=== PATIENT | female | born 1950 | race African-American/Black ===

== ENCOUNTER → 2016-10-17 | Outpatient (CLI) | payer MEDICARE, OTHER ==
[~2016-10-17] MED LIST: ATOR40TA28 PO; CINA30 PO; CLOP75 PO; DSS100 PO; FURO40 PO; ISOS20TA9 PO; MEDRONATE TC99M/UD<30 MCL ISOTOPE 1 EA INJ INJ ONE; METO100XL PO; SEVEC800 PO
== END | disposition home or self-care (01) ==
LOC: RADMN 14:20
PROVIDERS: ATTEND Podiatrist Foot & Ankle Surgery
DX: M86.271 Subacute osteomyelitis, right ankle and foot (principal); M79.671 Pain in right foot; L03.031 Cellulitis of right toe
CPT/HCPCS: 78315; A9503

== ENCOUNTER → 2016-10-29 | Outpatient (CLI) | payer MEDICARE, OTHER ==
[~2016-10-29] VITALS: Ht 157.5 cm; Wt 65.0 kg
[~2016-10-29] MED LIST changes: -MEDRONATE TC99M/UD<30 MCL ISOTOPE 1 EA INJ INJ ONE
[2016-10-29 09:52] VITALS: BP 99/62
== END | disposition home or self-care (01) ==
LOC: SRCNTR 09:46
PROVIDERS: ATTEND Hospitalist
DX: E11.9 Type 2 diabetes mellitus without complications (principal); I12.0 Hypertensive chronic kidney disease with stage 5 chronic kidney disease or end stage renal disease; N18.6 End stage renal disease; Z99.2 Dependence on renal dialysis; M79.674 Pain in right toe(s); H54.0 Blindness, both eyes; M79.671 Pain in right foot; E78.5 Hyperlipidemia, unspecified
CPT/HCPCS: G0463

== ENCOUNTER 2016-11-23 09:05 | Emergency (ER) | payer MEDICARE, OTHER ==
[~2016-11-23] VITALS: Ht 157.5 cm; Wt 63.6 kg
[2016-11-23 09:22] LABS: GLUCOSE,POINT OF CARE 83 MG/DL (70-110)
[2016-11-23] MEDS ORDERED: DIPHENOXYLATE/ATROP 2.5-0.025 MG/5 ML ORAL.SYG LIQUID PO ONE (10:30)
[2016-11-23] MEDS ORDERED: CIPROFLOXACIN HCL 250 MG TABLET PO ONE (10:30)
[2016-11-23 12:15] VITALS: BP 175/82
== END 2016-11-23 12:49 | disposition home or self-care (01) ==
LOC: EMS 09:08
DX: R19.7 Diarrhea, unspecified (principal); I10 Essential (primary) hypertension; E78.00 Pure hypercholesterolemia, unspecified; E11.29 Type 2 diabetes mellitus with other diabetic kidney complication; N28.9 Disorder of kidney and ureter, unspecified; Z88.0 Allergy status to penicillin; Z88.1 Allergy status to other antibiotic agents
CPT/HCPCS: 82962; 99283

== ENCOUNTER → 2017-01-21 | Outpatient (CLI) | payer MEDICARE, OTHER ==
[~2017-01-21] VITALS: Ht 157.5 cm; Wt 66.0 kg
[2017-01-21 10:14] VITALS: BP 142/60
== END | disposition home or self-care (01) ==
LOC: SRCNTR 10:06
PROVIDERS: ATTEND Hospitalist
DX: E11.65 Type 2 diabetes mellitus with hyperglycemia (principal); I12.0 Hypertensive chronic kidney disease with stage 5 chronic kidney disease or end stage renal disease; E11.22 Type 2 diabetes mellitus with diabetic chronic kidney disease; N18.6 End stage renal disease; E78.5 Hyperlipidemia, unspecified; H54.0 Blindness, both eyes; I73.9 Peripheral vascular disease, unspecified; Z89.512 Acquired absence of left leg below knee; Z99.2 Dependence on renal dialysis; Z87.19 Personal history of other diseases of the digestive system
CPT/HCPCS: G0463

== ENCOUNTER → 2017-06-24 | Outpatient (CLI) | payer MEDICARE, OTHER ==
[~2017-06-24] VITALS: Ht 157.5 cm; Wt 69.1 kg
[2017-06-24 12:04] VITALS: BP 152/72
== END | disposition home or self-care (01) ==
LOC: SRCNTR 11:49
PROVIDERS: ATTEND Hospitalist
DX: I10 Essential (primary) hypertension (principal); E11.65 Type 2 diabetes mellitus with hyperglycemia; E78.5 Hyperlipidemia, unspecified
CPT/HCPCS: G0463

== ENCOUNTER 2017-07-30 21:35 | Inpatient (IN) | payer MEDICARE, OTHER ==
[~2017-07-30] VITALS: Ht 157.5 cm; Wt 92.3 kg
[2017-07-30 21:58] LABS: GLUCOSE,POINT OF CARE 163 MG/DL (70-110)
[2017-07-30 22:44] LABS: BASOPHILS # (AUTO) 0.04 K/uL (0.00-0.20); BASOPHILS % (AUTO) 0.4 % (0.0-2.0); EOSINOPHILS # (AUTO) 0.02 K/uL (0.00-0.70); EOSINOPHILS % (AUTO) 0.17 % (1.0-6.0); HEMATOCRIT 36.4 % (36-46); HEMOGLOBIN 11.5 g/dL (12.0-16.0); LYMPHOCYTES # (AUTO) 0.7 K/uL (1.0-4.8); LYMPHOCYTES % (AUTO) 7.2 % (22.0-44.0); MEAN CORPUSCULAR HGB CONC 31.7 G/dL (31.0-37.0); MEAN CORPUSCULAR VOLUME 92 fL (80-100); MONOCYTES # (AUTO) 0.6 K/uL (0.1-1.0); MONOCYTES % (AUTO) 5.7 % (2.0-9.0); NEUTROPHILS # (AUTO) 8.9 K/uL (1.8-7.7); NEUTROPHILS % (AUTO) 86.5 % (40.0-70.0); PLATELET COUNT (AUTO) 280 K/uL (150-450); RED BLOOD CELL COUNT(AUTO) 3.97 MIL/uL (4.00-5.20); RED CELL DISTRIBUTION WIDTH 16.4 % (11.5-14.5); WHITE BLOOD COUNT (AUTO) 10.3 K/uL (4.5-11.0)
[2017-07-30] MEDS ORDERED: ONDANSETRON HCL 4 MG/2 ML VIAL IVP ONE (22:45)
[2017-07-30] MEDS ORDERED: HYDROmorphone 2 MG/ML SYRINGE IVP ONE (22:45)
[2017-07-30 23:15] LABS: CALCIUM, TOTAL 8.9 mg/dL (8.8-10.5); CREATININE 4.89 mg/dL (0.60-1.30); POTASSIUM 3.9 mmol/L (3.5-5.1)
[2017-07-30 23:21] LABS: ALBUMIN 3.5 g/dL (3.4-5.0); BILIRUBIN,TOTAL 1.5 mg/dL (0.1-1.0); TOTAL PROTEIN, SERUM 8.3 g/dL (6.4-8.2)
[2017-07-30] MEDS ORDERED: HYDROmorphone 2 MG/ML SYRINGE IM ONE (23:30)
[2017-07-30] MEDS ORDERED: ONDANSETRON HCL 4 MG/2 ML VIAL IM ONE (23:30)
[2017-07-31] MEDS ORDERED: BARIUM SULFATE 0.1% SUSPENSION 450 ML BOTTLE PO ONE (00:15)
[2017-07-31] MEDS ORDERED: MORPHINE SULFATE 4 MG/ML SYRINGE IVP PRN (03:00)
[2017-07-31] MEDS ORDERED: ONDANSETRON HCL 4 MG/2 ML VIAL IVP PRN ×3 (03:00→14:15)
[2017-07-31] MEDS ORDERED: ACETAMINOPHEN 325 MG TABLET PO PRN ×2 (03:00→14:15)
[2017-07-31] MEDS ORDERED: 0.9% SODIUM CHLORIDE 10 ML SYRINGE IVP PRN (03:00)
[2017-07-31] MEDS ORDERED: ONDANSETRON HCL 4 MG/2 ML VIAL IVP ONE (03:15)
[2017-07-31 03:30] VITALS: BP 147/70
[2017-07-31 08:00] VITALS: BP 137/68
[2017-07-31] MEDS ORDERED: DEXTROSE 50%-WATER 25 GM/50 ML SYRINGE IVP PRN ×2 (08:00→14:15)
[2017-07-31] MEDS ORDERED: INSULIN ASPART 100 UNITS/ML SQ PRN (08:00)
[2017-07-31] MEDS ORDERED: MIDAZOLAM HCL 2 MG/2 ML VIAL ONE (08:35)
[2017-07-31] MEDS ORDERED: FentaNYL CITRATE-PF 100 MCG/2 ML VIAL ONE (08:35)
[2017-07-31] MEDS ORDERED: LIDOCAINE HCL/PF 1% 30 ML VIAL ONE (08:35)
[2017-07-31] MEDS ORDERED: SODIUM CHLORIDE 0.9% 100 ML ONE (09:34)
[2017-07-31] MEDS ORDERED: IOVERSOL 350 MG/ML 100 ML VIAL ONE (09:34)
[2017-07-31] MEDS ORDERED: MIDAZOLAM HCL 2 MG/2 ML VIAL IVP ONE (10:08)
[2017-07-31] MEDS ORDERED: FentaNYL CITRATE-PF 100 MCG/2 ML VIAL IVP ONE (10:08)
[2017-07-31] MEDS ORDERED: BISACODYL 10 MG RECTAL RECTAL SUPPOSITORY PR PRN (14:15)
[2017-07-31] MEDS ORDERED: ALBUTEROL SULFATE 2.5 MG/0.5 ML NEB SOLUTION NEB PRN (14:15)
[2017-07-31] MEDS ORDERED: MORPHINE SULFATE 2 MG/ML SYRINGE IVP PRN (14:15)
[2017-07-31] MEDS ORDERED: OxyCODONE HCL/ACETAMINOPHEN 5-325 MG TABLET PO PRN (14:15)
[2017-07-31 15:32] LABS: CALCIUM, TOTAL 8.3 mg/dL (8.8-10.5); CREATININE 6.03 mg/dL (0.60-1.30); POTASSIUM 4.1 mmol/L (3.5-5.1)
[2017-07-31 15:36] LABS: MAGNESIUM 2.4 mg/dL (1.80-2.40); PHOSPHORUS 3.3 mg/dL (2.5-4.9)
[2017-07-31 16:00] VITALS: BP 138/72
[2017-07-31] MEDS: INSULIN ASPART 100 UNITS/ML SQ PRN ×2 (17:45→21:27)
[2017-07-31 19:42] LABS: GLUCOSE,POINT OF CARE 174 MG/DL (70-110)
[2017-07-31 19:42] LABS: GLUCOSE,POINT OF CARE 99 MG/DL (70-110)
[2017-07-31 20:18] VITALS: BP 104/51
[2017-07-31] MEDS: HEPARIN SODIUM,PORCINE 5,000 UNITS/ML VIAL SQ SCH (20:26)
[2017-07-31] MEDS: DOCUSATE SODIUM 100 MG CAPSULE PO SCH (20:26)
[2017-08-01 00:04] VITALS: BP 123/60
[2017-08-01 00:27] LABS: GLUCOSE COMMENT 1 Received Meds; GLUCOSE,POINT OF CARE 205 MG/DL (70-110)
[2017-08-01 05:04] VITALS: BP 131/62
[2017-08-01 07:47] VITALS: BP 158/71
[2017-08-01] MEDS ORDERED: GADOBUTROL 1 MMOL/ML 10 ML VIAL IVP ONE (08:14)
[2017-08-01 08:33] LABS: CARCINOEMBRYONIC AG 307.9 ng/mL (0.0-4.7)
[2017-08-01] MEDS: HEPARIN SODIUM,PORCINE 5,000 UNITS/ML VIAL SQ SCH ×2 (09:00→19:59)
[2017-08-01] MEDS: DOCUSATE SODIUM 100 MG CAPSULE PO SCH ×2 (09:00→20:00)
[2017-08-01] MEDS ORDERED: SODIUM CHLORIDE 0.9% 2,000 ML IV ONE (12:46)
[2017-08-01 15:23] LABS: ALBUMIN 2.3 g/dL (3.4-5.0); BILIRUBIN,TOTAL 0.6 mg/dL (0.1-1.0); CALCIUM, TOTAL 8.4 mg/dL (8.8-10.5); CREATININE 6.62 mg/dL (0.60-1.30); POTASSIUM 3.9 mmol/L (3.5-5.1)
[2017-08-01] MEDS: VITAMIN B COMP/VIT C/FOLIC ACID CAPSULE PO SCH (17:30)
[2017-08-01] MEDS: PANTOPRAZOLE SODIUM 40 MG DR TABLET PO SCH (17:30)
[2017-08-01 17:37] LABS: GLUCOSE,POINT OF CARE 81 MG/DL (70-110)
[2017-08-01 19:41] VITALS: BP 99/49
[2017-08-01 23:38] VITALS: BP 97/45
[2017-08-02 04:03] LABS: GLUCOSE,POINT OF CARE 103 MG/DL (70-110)
[2017-08-02 04:07] VITALS: BP 139/61
[2017-08-02 07:42] LABS: GLUCOSE,POINT OF CARE 103 MG/DL (70-110)
[2017-08-02 07:43] LABS: GLUCOSE,POINT OF CARE 81 MG/DL (70-110)
[2017-08-02 07:46] VITALS: BP 153/64
[2017-08-02] MEDS: DOCUSATE SODIUM 100 MG CAPSULE PO SCH ×2 (09:00→20:13)
[2017-08-02] MEDS: PANTOPRAZOLE SODIUM 40 MG DR TABLET PO SCH (09:42)
[2017-08-02] MEDS: VITAMIN B COMP/VIT C/FOLIC ACID CAPSULE PO SCH (09:42)
[2017-08-02] MEDS: HEPARIN SODIUM,PORCINE 5,000 UNITS/ML VIAL SQ SCH ×2 (09:49→20:13)
[2017-08-02 12:53] VITALS: BP 148/79
[2017-08-02 13:37] LABS: GLUCOSE,POINT OF CARE 104 MG/DL (70-110)
[2017-08-02 15:47] VITALS: BP 142/63
[2017-08-02 19:41] VITALS: BP 138/64
[2017-08-02] MEDS: INSULIN ASPART 100 UNITS/ML SQ PRN (20:18)
[2017-08-03 00:10] VITALS: BP 138/71
[2017-08-03 04:36] VITALS: BP 149/76
[2017-08-03 06:07] LABS: GLUCOSE,POINT OF CARE 219 MG/DL (70-110)
[2017-08-03 07:52] VITALS: BP 179/83
[2017-08-03] MEDS: VITAMIN B COMP/VIT C/FOLIC ACID CAPSULE PO SCH (08:57)
[2017-08-03] MEDS: DOCUSATE SODIUM 100 MG CAPSULE PO SCH ×2 (08:57→20:42)
[2017-08-03] MEDS: PANTOPRAZOLE SODIUM 40 MG DR TABLET PO SCH (08:57)
[2017-08-03] MEDS ORDERED: LIDOCAINE HCL/PF 1% 2 ML VIAL ID PRN (09:00)
[2017-08-03] MEDS: HEPARIN SODIUM,PORCINE 5,000 UNITS/ML VIAL SQ SCH ×2 (09:00→20:41)
[2017-08-03 11:42] LABS: GLUCOSE,POINT OF CARE 102 MG/DL (70-110)
[2017-08-03 15:24] VITALS: BP 112/58
[2017-08-03 20:04] VITALS: BP 110/55
[2017-08-03 23:25] VITALS: BP 108/51
[2017-08-04 05:32] VITALS: BP 127/63
[2017-08-04 08:01] VITALS: BP 148/74
[2017-08-04] MEDS: PANTOPRAZOLE SODIUM 40 MG DR TABLET PO SCH (08:24)
[2017-08-04] MEDS: VITAMIN B COMP/VIT C/FOLIC ACID CAPSULE PO SCH (08:24)
[2017-08-04] MEDS: HEPARIN SODIUM,PORCINE 5,000 UNITS/ML VIAL SQ SCH (08:24)
[2017-08-04] MEDS: DOCUSATE SODIUM 100 MG CAPSULE PO SCH (08:29)
[2017-08-04 11:25] VITALS: BP 140/90
== END 2017-08-04 15:45 | disposition home or self-care (01) | DRG 435 ==
LOC: EMS 21:36 → 6N 07-31 03:13
PROVIDERS: ADMIT Internal Medicine; ATTEND Internal Medicine
PROC: 0FB23ZX Excision of Left Lobe Liver, Percutaneous Approach, Diagnostic (ICD-10-PCS; principal; 2017-07-31)
PROC: 5A1D70Z Performance of Urinary Filtration, Intermittent, Less than 6 Hours Per Day (ICD-10-PCS; 2017-08-01)
PROC: 5A1D70Z Performance of Urinary Filtration, Intermittent, Less than 6 Hours Per Day (ICD-10-PCS; 2017-08-03)
DX: C22.1 Intrahepatic bile duct carcinoma (principal); N18.6 End stage renal disease; E11.22 Type 2 diabetes mellitus with diabetic chronic kidney disease; R16.0 Hepatomegaly, not elsewhere classified; N28.1 Cyst of kidney, acquired; E11.51 Type 2 diabetes mellitus with diabetic peripheral angiopathy without gangrene; E11.319 Type 2 diabetes mellitus with unspecified diabetic retinopathy without macular edema; I12.0 Hypertensive chronic kidney disease with stage 5 chronic kidney disease or end stage renal disease; D64.9 Anemia, unspecified; E78.00 Pure hypercholesterolemia, unspecified; H54.8 Legal blindness, as defined in USA; I25.10 Atherosclerotic heart disease of native coronary artery without angina pectoris; K80.20 Calculus of gallbladder without cholecystitis without obstruction; Z79.02 Long term (current) use of antithrombotics/antiplatelets; Z87.11 Personal history of peptic ulcer disease; Z89.512 Acquired absence of left leg below knee; Z90.710 Acquired absence of both cervix and uterus; Z99.2 Dependence on renal dialysis; Z88.8 Allergy status to other drugs, medicaments and biological substances
CPT/HCPCS: 47000; 74176; 74178; 74181; 76700; 82105; 82378; 82962; 83605; 83735; 84100; 86140; 86301; 87081; 88307; 88313; 88341; 88342; 90935; 93005; 96372; 96374; 99285; A9585; J1170; J1644; J2250; J2405; J3010; J3490; J7030; J7050

== ENCOUNTER 2017-10-02 21:13 | Emergency (ER) | payer MEDICARE, OTHER ==
[~2017-10-02] VITALS: Ht 157.5 cm; Wt 60.0 kg
[2017-10-02] MEDS ORDERED: METO50 PO (21:43)
[2017-10-02] MEDS ORDERED: PANT40TA25 PO (21:43)
[2017-10-02] MEDS ORDERED: IBUPROFEN 600 MG TABLET PO ONE (22:45)
[2017-10-02 22:51] VITALS: BP 151/88
== END 2017-10-02 22:54 | disposition home or self-care (01) ==
LOC: EMS 21:15
DX: S20.219A Contusion of unspecified front wall of thorax, initial encounter (principal); G89.29 Other chronic pain; M54.9 Dorsalgia, unspecified; I12.0 Hypertensive chronic kidney disease with stage 5 chronic kidney disease or end stage renal disease; N18.6 End stage renal disease; E11.22 Type 2 diabetes mellitus with diabetic chronic kidney disease; Z88.0 Allergy status to penicillin; Z88.1 Allergy status to other antibiotic agents; Z99.2 Dependence on renal dialysis; X58.XXXA Exposure to other specified factors, initial encounter; Y93.89 Activity, other specified; Y92.89 Other specified places as the place of occurrence of the external cause; Y99.8 Other external cause status
CPT/HCPCS: 71111; 99284

== ENCOUNTER 2017-10-12 08:24 | Inpatient (IN) | payer MEDICARE, OTHER ==
[~2017-10-12] VITALS: Ht 170.2 cm; Wt 76.7 kg
[~2017-10-12 08:24] MED LIST changes: +ACET-784 PO; +BISA10S PR; +CLOP75TA32 PO; +EPOE4000 SQ; +HEPA500018 SQ; +INSNOV SQ; +LEVO500 PO; -METO100XL PO; +METO50 PO; +METR500 PO; +MOM30 PO; +MORP15TA9 PO; +ONDA4 PO; +PANT40TA25 PO
[2017-10-12 12:34] LABS: BASOPHILS % (AUTO) 0.3 % (0.0-2.0); EOSINOPHILS % (AUTO) 0.5 % (1.0-6.0); HEMATOCRIT 26.6 % (36-46); HEMOGLOBIN 8.8 g/dL (12.0-16.0); LYMPHOCYTES # (AUTO) 1.1 K/uL (1.0-4.8); LYMPHOCYTES % (AUTO) 8.4 % (22.0-44.0); MEAN CORPUSCULAR HEMOGLOBIN 28.1 pg (26.0-34.0); MEAN CORPUSCULAR HGB CONC 33.1 G/dL (31.0-37.0); MEAN CORPUSCULAR VOLUME 85 fL (80-100); MONOCYTES # (AUTO) 1.5 K/uL (0.1-1.0); MONOCYTES % (AUTO) 10.8 % (2.0-9.0); NEUTROPHILS # (AUTO) 10.9 K/uL (1.8-7.7); PLATELET COUNT (AUTO) 164 K/uL (150-450); RED BLOOD CELL COUNT(AUTO) 3.13 MIL/uL (4.00-5.20); RED CELL DISTRIBUTION WIDTH 18.7 % (11.5-14.5)
[2017-10-12 12:48] LABS: CALCIUM, TOTAL 8.7 mg/dL (8.8-10.5); CREATININE 4.31 mg/dL (0.60-1.30); POTASSIUM 4.1 mmol/L (3.5-5.1)
[2017-10-12 12:53] LABS: ALBUMIN 1.6 g/dL (3.4-5.0); BILIRUBIN,TOTAL 1.3 mg/dL (0.1-1.0); TOTAL PROTEIN, SERUM 5.7 g/dL (6.4-8.2)
[2017-10-12] MEDS ORDERED: SODIUM CHLORIDE 0.9% 1,000 ML IV ONE (13:15)
[2017-10-12] MEDS ORDERED: SODIUM CHLORIDE 0.9% 250 ML IV ONE (13:15)
[2017-10-12] MEDS ORDERED: LEVOFLOXACIN 500 MG/D5% WATER 100 ML IV ONE (13:15)
[2017-10-12] MEDS: NOREPINEPHRINE 4 MG/D5%-WATER 250 ML IV PRN (13:44)
[2017-10-12] MEDS ORDERED: 0.9% SODIUM CHLORIDE 10 ML SYRINGE IVP PRN (13:45)
[2017-10-12] MEDS ORDERED: ACETAMINOPHEN 325 MG TABLET PO PRN (13:45)
[2017-10-12] MEDS ORDERED: POVIDONE-IODINE 10% 120 ML SOLUTION TP ONE ×2 (14:00→14:15)
[2017-10-12 16:00] VITALS: BP 112/62
[2017-10-12] MEDS ORDERED: ALBUMIN HUMAN 25%-25GM/100ML 100 ML IV ONE (19:00)
[2017-10-12] MEDS ORDERED: SODIUM CHLORIDE 0.9% 500 ML IV ONE (19:00)
[2017-10-12 20:00] VITALS: BP 96/48
[2017-10-13] VITALS (7 sets, daily range): BP systolic 97–125; BP diastolic 42–87
[2017-10-13] MEDS: NOREPINEPHRINE 4 MG/D5%-WATER 250 ML IV PRN ×3 (00:36→22:13)
[2017-10-13] MEDS ORDERED: *CLINICAL-AZTREONAM DOSING CLINICAL ONE (12:15)
[2017-10-13] MEDS ORDERED: ALBUMIN HUMAN 5%-12.5GM/250ML 250 ML IV ONE ×2 (12:30→13:30)
[2017-10-13] MEDS ORDERED: *CLINICAL-LEVOFLOXACIN IVPB DOSING CLINICAL ONE (12:30)
[2017-10-13] MEDS: DEXTROSE 5%-0.9% SODIUM CHL 1,000 ML IV SCH (12:45)
[2017-10-13] MEDS ORDERED: DEXTROSE 50%-WATER 25 GM/50 ML SYRINGE IVP PRN (12:45)
[2017-10-13] MEDS ORDERED: LEVOFLOXACIN 500 MG/D5% WATER 100 ML IV ONE (13:00)
[2017-10-13] MEDS ORDERED: AZTREONAM 2 GM in DEXTROSE 5%-WATER 50 ML IV ONE (13:00)
[2017-10-13] MEDS ORDERED: SODIUM CHLORIDE 0.9% 250 ML IV ONE (13:58)
[2017-10-13] MEDS ORDERED: AZTREONAM 1 GM in DEXTROSE 5%-WATER 50 ML IV SCH (14:00)
[2017-10-13] MEDS: LEVOFLOXACIN 500 MG/D5% WATER 100 ML IV SCH (15:12)
[2017-10-13] MEDS: INSULIN ASPART 100 UNITS/ML SQ PRN ×2 (17:46→20:59)
[2017-10-13 18:08] LABS: GLUCOSE,POINT OF CARE 215 MG/DL (70-110)
[2017-10-13] MEDS: AZTREONAM 0.5 GM in DEXTROSE 5%-WATER 50 ML IV SCH (20:57)
[2017-10-14] VITALS (7 sets, daily range): BP systolic 86–116; BP diastolic 46–65
[2017-10-14 05:05] LABS: HEMATOCRIT 26.8 % (36-46); HEMOGLOBIN 8.8 g/dL (12.0-16.0); MEAN CORPUSCULAR HEMOGLOBIN 28.1 pg (26.0-34.0); MEAN CORPUSCULAR HGB CONC 32.7 G/dL (31.0-37.0); MEAN CORPUSCULAR VOLUME 86 fL (80-100); PLATELET COUNT (AUTO) 160 K/uL (150-450); RED BLOOD CELL COUNT(AUTO) 3.11 MIL/uL (4.00-5.20); RED CELL DISTRIBUTION WIDTH 19.6 % (11.5-14.5)
[2017-10-14] MEDS: DEXTROSE 5%-0.9% SODIUM CHL 1,000 ML IV SCH (05:10)
[2017-10-14] MEDS: AZTREONAM 0.5 GM in DEXTROSE 5%-WATER 50 ML IV SCH ×3 (05:10→20:04)
[2017-10-14] MEDS: INSULIN ASPART 100 UNITS/ML SQ PRN ×5 (05:11→23:27)
[2017-10-14 05:14] LABS: % IRON SATURATION 108.8 % (22-44)
[2017-10-14 05:20] LABS: CALCIUM, TOTAL 8.4 mg/dL (8.8-10.5); CREATININE 5.01 mg/dL (0.60-1.30); MAGNESIUM 1.8 mg/dL (1.80-2.40); PHOSPHORUS 2.8 mg/dL (2.5-4.9); POTASSIUM 3.8 mmol/L (3.5-5.1)
[2017-10-14 07:22] LABS: GLUCOSE,POINT OF CARE 225 MG/DL (70-110)
[2017-10-14 07:23] LABS: GLUCOSE,POINT OF CARE 214 MG/DL (70-110)
[2017-10-14] MEDS: EPOETIN ALFA 10,000 UNITS/ML VIAL SQ SCH (08:51)
[2017-10-14 09:44] LABS: BAND NEUTROPHILS % (MANUAL) 1 % (1-5); EOSINOPHILS % (MANUAL) 1 % (1-6); LYMPHOCYTES % (MANUAL) 15 % (22-44); MONOCYTES % (MANUAL) 5 % (2-9); SEGMENTED NEUTROPHILS % 78 % (40-70)
[2017-10-14] MEDS ORDERED: EPOE10IM SQ (11:26)
[2017-10-14] MEDS: VITAMIN B COMP/VIT C/FOLIC ACID CAPSULE PO SCH (11:30)
[2017-10-14] MEDS: SODIUM CHLORIDE 0.9% 1,000 ML IV SCH (13:00)
[2017-10-14] MEDS: NOREPINEPHRINE 4 MG/D5%-WATER 250 ML IV PRN ×2 (13:59→19:30)
[2017-10-14] MEDS ORDERED: SODIUM CHLORIDE 0.9% 0 ML IV ONE (16:22)
[2017-10-14] MEDS: HEPARIN SODIUM,PORCINE 5,000 UNITS/ML VIAL SQ SCH ×2 (16:35→23:26)
[2017-10-14] MEDS: DOCUSATE SODIUM 100 MG CAPSULE PO SCH (20:04)
[2017-10-14 22:52] LABS: GLUCOSE,POINT OF CARE 227 MG/DL (70-110)
[2017-10-14 22:52] LABS: GLUCOSE,POINT OF CARE 237 MG/DL (70-110)
[2017-10-14 22:58] LABS: GLUCOSE,POINT OF CARE 203 MG/DL (70-110)
[2017-10-14 22:58] LABS: GLUCOSE,POINT OF CARE 195 MG/DL (70-110)
[2017-10-15] VITALS: BP 101/50
[2017-10-15] MEDS: NOREPINEPHRINE 4 MG/D5%-WATER 250 ML IV PRN ×3 (02:25→21:12)
[2017-10-15 04:00] VITALS: BP 88/56
[2017-10-15] MEDS: AZTREONAM 0.5 GM in DEXTROSE 5%-WATER 50 ML IV SCH ×3 (05:17→20:24)
[2017-10-15 05:20] LABS: ALBUMIN 1.7 g/dL (3.4-5.0); BILIRUBIN,TOTAL 1.7 mg/dL (0.1-1.0); CREATININE 5.54 mg/dL (0.60-1.30); POTASSIUM 3.6 mmol/L (3.5-5.1); TOTAL PROTEIN, SERUM 5.4 g/dL (6.4-8.2)
[2017-10-15] MEDS: INSULIN ASPART 100 UNITS/ML SQ PRN ×3 (05:29→17:10)
[2017-10-15 08:00] VITALS: BP 120/59
[2017-10-15] MEDS: HEPARIN SODIUM,PORCINE 5,000 UNITS/ML VIAL SQ SCH ×2 (08:00→17:09)
[2017-10-15 08:48] LABS: GLUCOSE,POINT OF CARE 186 MG/DL (70-110)
[2017-10-15 08:48] LABS: GLUCOSE,POINT OF CARE 187 MG/DL (70-110)
[2017-10-15] MEDS: DOCUSATE SODIUM 100 MG CAPSULE PO SCH ×2 (09:00→20:24)
[2017-10-15] MEDS: VITAMIN B COMP/VIT C/FOLIC ACID CAPSULE PO SCH (09:00)
[2017-10-15] MEDS: PANTOPRAZOLE SODIUM 40 MG DR TABLET PO SCH (09:00)
[2017-10-15] MEDS: ONDANSETRON HCL 4 MG/2 ML VIAL IVP PRN ×2 (11:07→19:08)
[2017-10-15 12:00] VITALS: BP 98/48
[2017-10-15] MEDS ORDERED: LEVOFLOXACIN 250 MG/D5% WATER 50 ML IV SCH (12:00)
[2017-10-15] MEDS: SODIUM CHLORIDE 0.9% 1,000 ML IV SCH (12:26)
[2017-10-15 15:38] LABS: GLUCOSE,POINT OF CARE 184 MG/DL (70-110)
[2017-10-15] MEDS ORDERED: SODIUM CHLORIDE 0.9% 250 ML IV ONE (15:46)
[2017-10-15] MEDS: LEVOFLOXACIN 500 MG/D5% WATER 100 ML IV SCH (15:55)
[2017-10-15 16:00] VITALS: BP 97/52
[2017-10-15 20:00] VITALS: BP 110/55
[2017-10-15 22:08] LABS: GLUCOSE,POINT OF CARE 200 MG/DL (70-110)
[2017-10-16] VITALS: BP 75/49
[2017-10-16] MEDS: HEPARIN SODIUM,PORCINE 5,000 UNITS/ML VIAL SQ SCH ×3 (00:30→15:35)
[2017-10-16] MEDS: ONDANSETRON HCL 4 MG/2 ML VIAL IVP PRN ×2 (00:30→15:35)
[2017-10-16 04:00] VITALS: BP 120/52
[2017-10-16] MEDS: AZTREONAM 0.5 GM in DEXTROSE 5%-WATER 50 ML IV SCH ×3 (05:53→21:27)
[2017-10-16] MEDS: INSULIN ASPART 100 UNITS/ML SQ PRN (06:37)
[2017-10-16 08:00] VITALS: BP 114/61
[2017-10-16] MEDS: EPOETIN ALFA 10,000 UNITS/ML VIAL SQ SCH (08:22)
[2017-10-16] MEDS: PANTOPRAZOLE SODIUM 40 MG DR TABLET PO SCH (08:22)
[2017-10-16] MEDS: VITAMIN B COMP/VIT C/FOLIC ACID CAPSULE PO SCH (08:22)
[2017-10-16] MEDS: DOCUSATE SODIUM 100 MG CAPSULE PO SCH ×2 (08:22→21:29)
[2017-10-16 09:27] LABS: GLUCOSE,POINT OF CARE 163 MG/DL (70-110)
[2017-10-16 09:27] LABS: GLUCOSE,POINT OF CARE 180 MG/DL (70-110)
[2017-10-16 12:00] VITALS: BP 94/49
[2017-10-16 16:00] VITALS: BP 94/60
[2017-10-16 17:32] LABS: GLUCOSE,POINT OF CARE 127 MG/DL (70-110)
[2017-10-16 17:33] LABS: GLUCOSE,POINT OF CARE 122 MG/DL (70-110)
[2017-10-16] MEDS: NOREPINEPHRINE 4 MG/D5%-WATER 250 ML IV PRN (18:43)
[2017-10-16 20:00] VITALS: BP 92/55
[2017-10-16] MEDS: MIDODRINE HCL 5 MG TABLET PO SCH (21:27)
[2017-10-17] VITALS (8 sets, daily range): BP systolic 85–123; BP diastolic 37–65
[2017-10-17] MEDS: HEPARIN SODIUM,PORCINE 5,000 UNITS/ML VIAL SQ SCH ×4 (00:29→23:54)
[2017-10-17] MEDS: ONDANSETRON HCL 4 MG/2 ML VIAL IVP PRN (00:34)
[2017-10-17] MEDS: AZTREONAM 0.5 GM in DEXTROSE 5%-WATER 50 ML IV SCH ×3 (05:27→20:43)
[2017-10-17] MEDS ORDERED: SODIUM CHLORIDE 0.9% 250 ML IV ONE (05:29)
[2017-10-17 06:00] LABS: HEMATOCRIT 24.5 % (36-46); HEMOGLOBIN 8.1 g/dL (12.0-16.0); MEAN CORPUSCULAR HEMOGLOBIN 28.2 pg (26.0-34.0); MEAN CORPUSCULAR HGB CONC 33.2 G/dL (31.0-37.0); MEAN CORPUSCULAR VOLUME 85 fL (80-100); PLATELET COUNT (AUTO) 151 K/uL (150-450); RED BLOOD CELL COUNT(AUTO) 2.89 MIL/uL (4.00-5.20); RED CELL DISTRIBUTION WIDTH 19.6 % (11.5-14.5)
[2017-10-17 06:11] LABS: ALBUMIN 1.5 g/dL (3.4-5.0); BILIRUBIN,TOTAL 2.2 mg/dL (0.1-1.0); CALCIUM, TOTAL 8.2 mg/dL (8.8-10.5); CREATININE 6.2 mg/dL (0.60-1.30); POTASSIUM 4.3 mmol/L (3.5-5.1); TOTAL PROTEIN, SERUM 5.2 g/dL (6.4-8.2)
[2017-10-17 06:39] LABS: GLUCOSE,POINT OF CARE 137 MG/DL (70-110)
[2017-10-17] MEDS ORDERED: ALBUMIN HUMAN 25%-12.5GM/50ML IV BOTTLE IV ONE (07:00)
[2017-10-17] MEDS ORDERED: HEPARIN SODIUM,PORCINE 1,000 UNITS/ML VIAL IVP ONE (07:00)
[2017-10-17 07:29] LABS: BAND NEUTROPHILS % (MANUAL) 1 % (1-5); LYMPHOCYTES % (MANUAL) 8 % (22-44); MONOCYTES % (MANUAL) 3 % (2-9); SEGMENTED NEUTROPHILS % 88 % (40-70)
[2017-10-17] MEDS: PANTOPRAZOLE SODIUM 40 MG DR TABLET PO SCH (08:18)
[2017-10-17] MEDS: DOCUSATE SODIUM 100 MG CAPSULE PO SCH ×2 (08:18→20:44)
[2017-10-17] MEDS: VITAMIN B COMP/VIT C/FOLIC ACID CAPSULE PO SCH (08:19)
[2017-10-17] MEDS: MIDODRINE HCL 5 MG TABLET PO SCH ×3 (08:45→20:43)
[2017-10-17] MEDS: NOREPINEPHRINE 4 MG/D5%-WATER 250 ML IV PRN ×2 (09:03→16:21)
[2017-10-17 12:25] LABS: ABG A-A DIFF O2 80.7 mmHg (10-20.0); ABG BASE EXCESS -0.5 mmol/L (-2.0-3.0); ABG CARBOXYHEMOGLOBIN 1.3 % (0.0-1.5); ABG HCO3 24.1 mmol/L (22.0-26.0); ABG METHEMOGLOBIN 0.1 % (0.0-1.5); ABG OXYGEN CONTENT 11.3 mL/dL (15.0-23.0); ABG OXYGEN SATURATION 95.7 % (95.0-98.0); ABG OXYHEMOGLOBIN 94.4 % (94.0-100.0); ABG PCO2 36 mmHg (35-45); ABG PH 7.432 (7.35-7.450); ABG TOTAL HEMOGLOBIN 8.4 G/dL (12.0-18.0); O2 DEVICE,BLOOD GAS CANNULA (ROOM AIR); PO2, ARTERIAL BG 76.4 mmHg (79.0-87.0); SITE, BLOOD GAS RT RADIAL; SOURCE, BLOOD GAS ARTERIAL; TEMPERATURE, FAHRENHEIT, BG 97.6 FAHREN (96.0-98.6)
[2017-10-17] MEDS: LEVOFLOXACIN 500 MG/D5% WATER 100 ML IV SCH (15:03)
[2017-10-17 15:22] LABS: GLUCOSE,POINT OF CARE 137 MG/DL (70-110)
[2017-10-17] MEDS ORDERED: SODIUM CHLORIDE 0.9% 500 ML IV ONE ×2 (17:17→17:37)
[2017-10-17] MEDS: DOXYCYCLINE 100 MG in DEXTROSE 5%-WATER 100 ML IV SCH (22:48)
[2017-10-18] VITALS: BP_SYST 128; BP_SYST 93; BP_DIAS 30; BP_DIAS 62
[2017-10-18 04:00] VITALS: BP 137/97
[2017-10-18] MEDS: NOREPINEPHRINE 4 MG/D5%-WATER 250 ML IV PRN ×2 (04:36→15:04)
[2017-10-18] MEDS: AZTREONAM 0.5 GM in DEXTROSE 5%-WATER 50 ML IV SCH ×3 (04:39→20:56)
[2017-10-18] MEDS: INSULIN ASPART 100 UNITS/ML SQ PRN ×2 (04:53→21:14)
[2017-10-18] MEDS ORDERED: SODIUM CHLORIDE 0.9% 250 ML IV ONE (04:56)
[2017-10-18 05:23] LABS: BASOPHILS % (AUTO) 0.3 % (0.0-2.0); EOSINOPHILS % (AUTO) 0.4 % (1.0-6.0); HEMATOCRIT 23.5 % (36-46); HEMOGLOBIN 7.8 g/dL (12.0-16.0); LYMPHOCYTES # (AUTO) 1.3 K/uL (1.0-4.8); LYMPHOCYTES % (AUTO) 7.8 % (22.0-44.0); MEAN CORPUSCULAR HEMOGLOBIN 28.3 pg (26.0-34.0); MEAN CORPUSCULAR HGB CONC 33.4 G/dL (31.0-37.0); MEAN CORPUSCULAR VOLUME 85 fL (80-100); MONOCYTES # (AUTO) 2.1 K/uL (0.1-1.0); MONOCYTES % (AUTO) 12.2 % (2.0-9.0); NEUTROPHILS # (AUTO) 13.4 K/uL (1.8-7.7); NEUTROPHILS % (AUTO) 79.3 % (40.0-70.0); PLATELET COUNT (AUTO) 140 K/uL (150-450); RED BLOOD CELL COUNT(AUTO) 2.77 MIL/uL (4.00-5.20); RED CELL DISTRIBUTION WIDTH 20.4 % (11.5-14.5)
[2017-10-18 05:37] LABS: ALBUMIN 1.7 g/dL (3.4-5.0); BILIRUBIN,TOTAL 1.9 mg/dL (0.1-1.0); CALCIUM, TOTAL 8.1 mg/dL (8.8-10.5); CREATININE 4.42 mg/dL (0.60-1.30); POTASSIUM 3.7 mmol/L (3.5-5.1)
[2017-10-18 07:48] LABS: GLUCOSE,POINT OF CARE 138 MG/DL (70-110)
[2017-10-18] MEDS: HEPARIN SODIUM,PORCINE 5,000 UNITS/ML VIAL SQ SCH ×2 (08:19→15:03)
[2017-10-18] MEDS: PANTOPRAZOLE SODIUM 40 MG DR TABLET PO SCH (08:20)
[2017-10-18] MEDS: MIDODRINE HCL 5 MG TABLET PO SCH ×3 (08:20→20:56)
[2017-10-18] MEDS: VITAMIN B COMP/VIT C/FOLIC ACID CAPSULE PO SCH (08:20)
[2017-10-18] MEDS: DOCUSATE SODIUM 100 MG CAPSULE PO SCH ×2 (08:20→20:56)
[2017-10-18] MEDS: EPOETIN ALFA 10,000 UNITS/ML VIAL SQ SCH (08:20)
[2017-10-18] MEDS: DOXYCYCLINE 100 MG in DEXTROSE 5%-WATER 100 ML IV SCH ×2 (11:01→23:26)
[2017-10-18 11:21] VITALS: BP 102/42
[2017-10-18 12:00] VITALS: BP 89/34
[2017-10-18 12:43] LABS: GLUCOSE,POINT OF CARE 124 MG/DL (70-110)
[2017-10-18 16:00] VITALS: BP 119/34
[2017-10-18 17:38] LABS: GLUCOSE,POINT OF CARE 147 MG/DL (70-110)
[2017-10-18 17:38] LABS: GLUCOSE,POINT OF CARE 145 MG/DL (70-110)
[2017-10-18 20:00] VITALS: BP 103/32
[2017-10-18 22:38] LABS: GLUCOSE,POINT OF CARE 163 MG/DL (70-110)
[2017-10-19] VITALS (8 sets, daily range): BP systolic 100–146; BP diastolic 29–87
[2017-10-19] MEDS: NOREPINEPHRINE 4 MG/D5%-WATER 250 ML IV PRN ×3 (00:06→20:23)
[2017-10-19] MEDS: AZTREONAM 0.5 GM in DEXTROSE 5%-WATER 50 ML IV SCH ×3 (05:48→20:08)
[2017-10-19] MEDS: INSULIN ASPART 100 UNITS/ML SQ PRN (06:04)
[2017-10-19 06:58] LABS: GLUCOSE,POINT OF CARE 176 MG/DL (70-110)
[2017-10-19] MEDS: DOCUSATE SODIUM 100 MG CAPSULE PO SCH ×2 (09:00→20:22)
[2017-10-19] MEDS: VITAMIN B COMP/VIT C/FOLIC ACID CAPSULE PO SCH (09:00)
[2017-10-19] MEDS: PANTOPRAZOLE SODIUM 40 MG DR TABLET PO SCH (09:00)
[2017-10-19] MEDS: MIDODRINE HCL 5 MG TABLET PO SCH ×3 (09:00→20:08)
[2017-10-19] MEDS: HEPARIN SODIUM,PORCINE 5,000 UNITS/ML VIAL SQ SCH ×4 (09:06→23:19)
[2017-10-19] MEDS: DOXYCYCLINE 100 MG in DEXTROSE 5%-WATER 100 ML IV SCH ×2 (11:15→22:01)
[2017-10-19 11:22] LABS: GLUCOSE,POINT OF CARE 101 MG/DL (70-110)
[2017-10-19 12:02] LABS: BASOPHILS % (AUTO) 0.2 % (0.0-2.0); EOSINOPHILS % (AUTO) 0.3 % (1.0-6.0); HEMATOCRIT 25.8 % (36-46); HEMOGLOBIN 8.7 g/dL (12.0-16.0); LYMPHOCYTES # (AUTO) 1.5 K/uL (1.0-4.8); LYMPHOCYTES % (AUTO) 6.3 % (22.0-44.0); MEAN CORPUSCULAR HEMOGLOBIN 28.4 pg (26.0-34.0); MEAN CORPUSCULAR HGB CONC 33.6 G/dL (31.0-37.0); MEAN CORPUSCULAR VOLUME 84 fL (80-100); MONOCYTES # (AUTO) 3.3 K/uL (0.1-1.0); MONOCYTES % (AUTO) 13.5 % (2.0-9.0); NEUTROPHILS # (AUTO) 19.3 K/uL (1.8-7.7); NEUTROPHILS % (AUTO) 79.7 % (40.0-70.0); PLATELET COUNT (AUTO) 143 K/uL (150-450); RED BLOOD CELL COUNT(AUTO) 3.06 MIL/uL (4.00-5.20); RED CELL DISTRIBUTION WIDTH 20.9 % (11.5-14.5)
[2017-10-19 12:21] LABS: CALCIUM, TOTAL 8.2 mg/dL (8.8-10.5)
[2017-10-19 12:25] LABS: ALBUMIN 1.5 g/dL (3.4-5.0); BILIRUBIN,TOTAL 2.8 mg/dL (0.1-1.0)
[2017-10-19] MEDS: LEVOFLOXACIN 500 MG/D5% WATER 100 ML IV SCH (14:02)
[2017-10-19 16:12] LABS: GLUCOSE,POINT OF CARE 133 MG/DL (70-110)
[2017-10-19] MEDS: ALBUMIN HUMAN 25%-25GM/100ML 100 ML IV SCH ×2 (16:21→23:18)
[2017-10-19 21:03] LABS: GLUCOSE,POINT OF CARE 162 MG/DL (70-110)
[2017-10-19] MEDS: MORPHINE SULFATE 2 MG/ML SYRINGE IVP PRN (22:00)
[2017-10-20] VITALS (8 sets, daily range): BP systolic 97–147; BP diastolic 32–62
[2017-10-20] MEDS ORDERED: SODIUM CHLORIDE 0.9% 250 ML IV ONE (01:44)
[2017-10-20] MEDS ORDERED: SODIUM CHLORIDE 0.9% 500 ML IV ONE (01:44)
[2017-10-20] MEDS: MORPHINE SULFATE 2 MG/ML SYRINGE IVP PRN (02:18)
[2017-10-20] MEDS: AZTREONAM 0.5 GM in DEXTROSE 5%-WATER 50 ML IV SCH ×3 (04:58→21:05)
[2017-10-20 08:17] LABS: GLUCOSE,POINT OF CARE 151 MG/DL (70-110)
[2017-10-20] MEDS: HEPARIN SODIUM,PORCINE 5,000 UNITS/ML VIAL SQ SCH ×3 (08:23→23:59)
[2017-10-20] MEDS: VITAMIN B COMP/VIT C/FOLIC ACID CAPSULE PO SCH (08:23)
[2017-10-20] MEDS: PANTOPRAZOLE SODIUM 40 MG DR TABLET PO SCH (08:23)
[2017-10-20] MEDS: DOCUSATE SODIUM 100 MG CAPSULE PO SCH ×2 (08:23→21:00)
[2017-10-20] MEDS: ALBUMIN HUMAN 25%-25GM/100ML 100 ML IV SCH ×3 (08:23→23:59)
[2017-10-20] MEDS: MIDODRINE HCL 5 MG TABLET PO SCH ×3 (08:24→21:00)
[2017-10-20] MEDS: DOXYCYCLINE 100 MG in DEXTROSE 5%-WATER 100 ML IV SCH ×2 (11:26→23:59)
[2017-10-20 11:28] LABS: GLUCOSE,POINT OF CARE 122 MG/DL (70-110)
[2017-10-20 17:03] LABS: GLUCOSE,POINT OF CARE 134 MG/DL (70-110)
[2017-10-20] MEDS ORDERED: HYDROmorphone 2 MG/ML SYRINGE IVP PRN (18:30)
[2017-10-20] MEDS ORDERED: MORPHINE SULFATE 2 MG/ML SYRINGE IVP PRN (19:00)
[2017-10-21] VITALS: BP 91/53
[2017-10-21] MEDS: NOREPINEPHRINE 4 MG/D5%-WATER 250 ML IV PRN ×2 (02:00→08:43)
[2017-10-21 04:00] VITALS: BP 108/55
[2017-10-21 05:09] LABS: ALBUMIN 2.8 g/dL (3.4-5.0); BILIRUBIN,TOTAL 4.6 mg/dL (0.1-1.0); CALCIUM, TOTAL 8.7 mg/dL (8.8-10.5); CREATININE 4.17 mg/dL (0.60-1.30); POTASSIUM 4.4 mmol/L (3.5-5.1); TOTAL PROTEIN, SERUM 5.1 g/dL (6.4-8.2)
[2017-10-21 05:18] LABS: GLUCOSE,POINT OF CARE 155 MG/DL (70-110)
[2017-10-21 05:18] LABS: GLUCOSE,POINT OF CARE 115 MG/DL (70-110)
[2017-10-21] MEDS: INSULIN ASPART 100 UNITS/ML SQ PRN ×3 (05:25→21:06)
[2017-10-21] MEDS: AZTREONAM 0.5 GM in DEXTROSE 5%-WATER 50 ML IV SCH ×3 (05:28→21:04)
[2017-10-21 06:22] LABS: HEMATOCRIT 25.3 % (36-46); HEMOGLOBIN 8.3 g/dL (12.0-16.0); MEAN CORPUSCULAR HEMOGLOBIN 28.4 pg (26.0-34.0); MEAN CORPUSCULAR HGB CONC 32.8 G/dL (31.0-37.0); MEAN CORPUSCULAR VOLUME 87 fL (80-100); PLATELET COUNT (AUTO) 117 K/uL (150-450); RED BLOOD CELL COUNT(AUTO) 2.92 MIL/uL (4.00-5.20); RED CELL DISTRIBUTION WIDTH 20.6 % (11.5-14.5)
[2017-10-21 08:00] VITALS: BP 92/43
[2017-10-21] MEDS: EPOETIN ALFA 10,000 UNITS/ML VIAL SQ SCH (08:58)
[2017-10-21] MEDS: ALBUMIN HUMAN 25%-25GM/100ML 100 ML IV SCH ×3 (08:58→23:48)
[2017-10-21] MEDS: HEPARIN SODIUM,PORCINE 5,000 UNITS/ML VIAL SQ SCH ×3 (08:58→23:48)
[2017-10-21] MEDS: DOCUSATE SODIUM 100 MG CAPSULE PO SCH ×2 (09:23→21:04)
[2017-10-21] MEDS: VITAMIN B COMP/VIT C/FOLIC ACID CAPSULE PO SCH (09:23)
[2017-10-21] MEDS: MIDODRINE HCL 5 MG TABLET PO SCH ×3 (09:23→21:04)
[2017-10-21] MEDS: PANTOPRAZOLE SODIUM 40 MG DR TABLET PO SCH (09:23)
[2017-10-21 11:53] LABS: LYMPHOCYTES % (MANUAL) 9 % (22-44); MONOCYTES % (MANUAL) 8 % (2-9); SEGMENTED NEUTROPHILS % 83 % (40-70)
[2017-10-21 12:00] VITALS: BP 100/42
[2017-10-21] MEDS: DOXYCYCLINE 100 MG in DEXTROSE 5%-WATER 100 ML IV SCH ×2 (12:42→22:58)
[2017-10-21] MEDS: NOREPINEPHRINE BITARTRATE 16 MG in DEXTROSE 5%-WATER 234 ML IV PRN (12:57)
[2017-10-21 14:08] LABS: GLUCOSE,POINT OF CARE 129 MG/DL (70-110)
[2017-10-21] MEDS: LEVOFLOXACIN 500 MG/D5% WATER 100 ML IV SCH (15:43)
[2017-10-21 16:00] VITALS: BP 84/37
[2017-10-21] MEDS: MetroNIDAZOLE 500 MG/NACL 100 ML IV SCH (18:18)
[2017-10-21 20:00] VITALS: BP 93/49
[2017-10-21] MEDS ORDERED: SODIUM CHLORIDE 0.9% 250 ML IV ONE (22:57)
[2017-10-22] VITALS (8 sets, daily range): BP systolic 84–123; BP diastolic 47–60
[2017-10-22 00:43] LABS: GLUCOSE,POINT OF CARE 157 MG/DL (70-110)
[2017-10-22] MEDS: MetroNIDAZOLE 500 MG/NACL 100 ML IV SCH ×3 (01:44→17:39)
[2017-10-22] MEDS: AZTREONAM 0.5 GM in DEXTROSE 5%-WATER 50 ML IV SCH ×3 (04:35→21:23)
[2017-10-22] MEDS ORDERED: COSYNTROPIN 0.25 MG VIAL IVP ONE (05:30)
[2017-10-22] MEDS: INSULIN ASPART 100 UNITS/ML SQ PRN (05:41)
[2017-10-22 07:44] LABS: BASOPHILS % (AUTO) 0.5 % (0.0-2.0); EOSINOPHILS % (AUTO) 0.6 % (1.0-6.0); HEMATOCRIT 24.2 % (36-46); LYMPHOCYTES # (AUTO) 1.7 K/uL (1.0-4.8); LYMPHOCYTES % (AUTO) 6.1 % (22.0-44.0); MEAN CORPUSCULAR HEMOGLOBIN 28.6 pg (26.0-34.0); MEAN CORPUSCULAR VOLUME 87 fL (80-100); MONOCYTES % (AUTO) 6.9 % (2.0-9.0); NEUTROPHILS # (AUTO) 24.6 K/uL (1.8-7.7); PLATELET COUNT (AUTO) 94 K/uL (150-450); RED CELL DISTRIBUTION WIDTH 21.1 % (11.5-14.5)
[2017-10-22 07:45] LABS: NEUTROPHILS % (AUTO) 85.9 % (40.0-70.0)
[2017-10-22 07:59] LABS: CALCIUM, TOTAL 8.7 mg/dL (8.8-10.5); CREATININE 4.66 mg/dL (0.60-1.30); MAGNESIUM 1.5 mg/dL (1.80-2.40); PHOSPHORUS 3.4 mg/dL (2.5-4.9); POTASSIUM 4.4 mmol/L (3.5-5.1)
[2017-10-22] MEDS ORDERED: SODIUM CHLORIDE 0.9% 2,000 ML IV ONE (08:29)
[2017-10-22] MEDS: ALBUMIN HUMAN 25%-25GM/100ML 100 ML IV SCH ×3 (09:25→23:47)
[2017-10-22] MEDS: HEPARIN SODIUM,PORCINE 5,000 UNITS/ML VIAL SQ SCH ×3 (09:26→23:48)
[2017-10-22] MEDS: MIDODRINE HCL 5 MG TABLET PO SCH ×3 (09:26→21:23)
[2017-10-22] MEDS: VITAMIN B COMP/VIT C/FOLIC ACID CAPSULE PO SCH (09:26)
[2017-10-22] MEDS: DOCUSATE SODIUM 100 MG CAPSULE PO SCH ×2 (09:26→21:23)
[2017-10-22] MEDS: PANTOPRAZOLE SODIUM 40 MG DR TABLET PO SCH (09:27)
[2017-10-22] MEDS: NOREPINEPHRINE BITARTRATE 16 MG in DEXTROSE 5%-WATER 234 ML IV PRN (11:44)
[2017-10-22 12:43] LABS: GLUCOSE,POINT OF CARE 153 MG/DL (70-110)
[2017-10-22 12:43] LABS: GLUCOSE,POINT OF CARE 149 MG/DL (70-110)
[2017-10-22 12:43] LABS: GLUCOSE,POINT OF CARE 91 MG/DL (70-110)
[2017-10-22] MEDS: DOXYCYCLINE 100 MG in DEXTROSE 5%-WATER 100 ML IV SCH ×2 (12:58→22:53)
[2017-10-22] MEDS: MORPHINE SULFATE 2 MG/ML SYRINGE IVP PRN (17:39)
[2017-10-22 22:22] LABS: GLUCOSE,POINT OF CARE 84 MG/DL (70-110)
[2017-10-22 22:22] LABS: GLUCOSE,POINT OF CARE 90 MG/DL (70-110)
[2017-10-22 22:22] LABS: GLUCOSE,POINT OF CARE 69 MG/DL (70-110)
[2017-10-22] MEDS ORDERED: SODIUM CHLORIDE 0.9% 250 ML IV ONE (23:57)
[2017-10-23] VITALS: BP 113/58
[2017-10-23 00:16] VITALS: BP 104/55
[2017-10-23] MEDS: MORPHINE SULFATE 2 MG/ML SYRINGE IVP PRN ×2 (00:16→18:07)
[2017-10-23 00:31] VITALS: BP 131/76
[2017-10-23] MEDS: MetroNIDAZOLE 500 MG/NACL 100 ML IV SCH ×3 (01:36→17:47)
[2017-10-23 04:00] VITALS: BP 85/52
[2017-10-23] MEDS: AZTREONAM 0.5 GM in DEXTROSE 5%-WATER 50 ML IV SCH ×2 (04:42→12:12)
[2017-10-23 05:20] LABS: BASOPHILS % (AUTO) 0.1 % (0.0-2.0); EOSINOPHILS % (AUTO) 0.1 % (1.0-6.0); HEMATOCRIT 21.3 % (36-46); LYMPHOCYTES # (AUTO) 1.6 K/uL (1.0-4.8); MEAN CORPUSCULAR HEMOGLOBIN 28.7 pg (26.0-34.0); MEAN CORPUSCULAR HGB CONC 32.8 G/dL (31.0-37.0); MEAN CORPUSCULAR VOLUME 87 fL (80-100); MONOCYTES # (AUTO) 1.9 K/uL (0.1-1.0); MONOCYTES % (AUTO) 7.5 % (2.0-9.0); NEUTROPHILS # (AUTO) 22.3 K/uL (1.8-7.7); PLATELET COUNT (AUTO) 73 K/uL (150-450); RED BLOOD CELL COUNT(AUTO) 2.44 MIL/uL (4.00-5.20); RED CELL DISTRIBUTION WIDTH 21.7 % (11.5-14.5)
[2017-10-23 05:28] LABS: NEUTROPHILS % (AUTO) 86.3 % (40.0-70.0)
[2017-10-23 05:35] LABS: ALBUMIN 3.2 g/dL (3.4-5.0); BILIRUBIN,TOTAL 5.7 mg/dL (0.1-1.0); CALCIUM, TOTAL 9.1 mg/dL (8.8-10.5); CREATININE 3.34 mg/dL (0.60-1.30); MAGNESIUM 1.6 mg/dL (1.80-2.40); PHOSPHORUS 3.3 mg/dL (2.5-4.9); POTASSIUM 4.3 mmol/L (3.5-5.1)
[2017-10-23 05:43] LABS: BILIRUBIN,DIRECT 3.9 mg/dL (0.00-0.20)
[2017-10-23] MEDS: VITAMIN B COMP/VIT C/FOLIC ACID CAPSULE PO SCH (09:29)
[2017-10-23] MEDS: PANTOPRAZOLE SODIUM 40 MG DR TABLET PO SCH (09:29)
[2017-10-23] MEDS: HEPARIN SODIUM,PORCINE 5,000 UNITS/ML VIAL SQ SCH ×2 (09:29→17:34)
[2017-10-23] MEDS: MIDODRINE HCL 5 MG TABLET PO SCH ×2 (09:30→16:00)
[2017-10-23] MEDS: EPOETIN ALFA 10,000 UNITS/ML VIAL SQ SCH (09:30)
[2017-10-23] MEDS: ALBUMIN HUMAN 25%-25GM/100ML 100 ML IV SCH ×2 (09:33→17:34)
[2017-10-23 09:34] VITALS: BP 109/59
[2017-10-23] MEDS: NOREPINEPHRINE BITARTRATE 16 MG in DEXTROSE 5%-WATER 234 ML IV PRN (09:34)
[2017-10-23] MEDS: DOCUSATE SODIUM 100 MG CAPSULE PO SCH (09:36)
[2017-10-23 10:49] LABS: ABG A-A DIFF O2 95.1 mmHg (10-20.0); ABG BASE EXCESS -5.8 mmol/L (-2.0-3.0); ABG CARBOXYHEMOGLOBIN 2.1 % (0.0-1.5); ABG HCO3 20.1 mmol/L (22.0-26.0); ABG METHEMOGLOBIN 0.3 % (0.0-1.5); ABG OXYGEN CONTENT 9.6 mL/dL (15.0-23.0); ABG OXYGEN SATURATION 92.7 % (95.0-98.0); ABG OXYHEMOGLOBIN 90.5 % (94.0-100.0); ABG PCO2 31 mmHg (35-45); ABG PH 7.408 (7.35-7.450); PO2, ARTERIAL BG 68.4 mmHg (79.0-87.0); SOURCE, BLOOD GAS ARTERIAL; TEMPERATURE, FAHRENHEIT, BG 98.6 FAHREN (96.0-98.6)
[2017-10-23 10:51] LABS: ABG TOTAL HEMOGLOBIN 7.5 G/dL (12.0-18.0); O2 DEVICE,BLOOD GAS CANNULA (ROOM AIR); SITE, BLOOD GAS RT RADIAL
[2017-10-23] MEDS: DOXYCYCLINE 100 MG in DEXTROSE 5%-WATER 100 ML IV SCH (12:10)
[2017-10-23 13:32] LABS: GLUCOSE,POINT OF CARE 95 MG/DL (70-110)
[2017-10-23 13:32] LABS: GLUCOSE,POINT OF CARE 105 MG/DL (70-110)
[2017-10-23] MEDS: LEVOFLOXACIN 500 MG/D5% WATER 100 ML IV SCH (15:27)
[2017-10-23 16:58] LABS: CORTISOL Baseline 26.4 ug/dL; CORTISOL STIMULATED,ACTH 28.6 ug/dL (Not Estab.)
== END 2017-10-23 20:15 | disposition expired | DRG 871 ==
LOC: EMS 08:26 → ICU 13:48
PROVIDERS: ADMIT Internal Medicine; ATTEND Internal Medicine
PROC: 02HV33Z Insertion of Infusion Device into Superior Vena Cava, Percutaneous Approach (ICD-10-PCS; principal; 2017-10-13)
PROC: B548ZZA Ultrasonography of Superior Vena Cava, Guidance (ICD-10-PCS; 2017-10-13)
PROC: 5A1D70Z Performance of Urinary Filtration, Intermittent, Less than 6 Hours Per Day (ICD-10-PCS; 2017-10-17)
PROC: 5A1D70Z Performance of Urinary Filtration, Intermittent, Less than 6 Hours Per Day (ICD-10-PCS; 2017-10-19)
PROC: 5A1D70Z Performance of Urinary Filtration, Intermittent, Less than 6 Hours Per Day (ICD-10-PCS; 2017-10-22)
DX: A41.9 Sepsis, unspecified organism (principal); J18.9 Pneumonia, unspecified organism; R65.21 Severe sepsis with septic shock; G93.41 Metabolic encephalopathy; C22.1 Intrahepatic bile duct carcinoma; K83.0 Cholangitis; R13.10 Dysphagia, unspecified; N18.6 End stage renal disease; C78.00 Secondary malignant neoplasm of unspecified lung; I12.0 Hypertensive chronic kidney disease with stage 5 chronic kidney disease or end stage renal disease; E11.22 Type 2 diabetes mellitus with diabetic chronic kidney disease; D64.9 Anemia, unspecified; E78.00 Pure hypercholesterolemia, unspecified; E78.5 Hyperlipidemia, unspecified; H53.2 Diplopia; H54.7 Unspecified visual loss; E11.51 Type 2 diabetes mellitus with diabetic peripheral angiopathy without gangrene; M54.9 Dorsalgia, unspecified; Y95 Nosocomial condition; Z85.05 Personal history of malignant neoplasm of liver; Z88.0 Allergy status to penicillin; Z88.1 Allergy status to other antibiotic agents; Z89.512 Acquired absence of left leg below knee; Z99.2 Dependence on renal dialysis; Z90.710 Acquired absence of both cervix and uterus
CPT/HCPCS: 71250; 74018; 74177; 76700; 82533; 82805; 82962; 83540; 83550; 83605; 83735; 84100; 84145; 85007; 87040; 87070; 87081; 87205; 92610; 93005; 96360; 96361; 99291; J0834; J0885; J1170; J1644; J1956; J2270; J2405; J3490; J7030; J7040; J7042; J7050; J7060; P9041; P9046; P9047